=== PATIENT | male | born 1995 | race Caucasian/White ===

== ENCOUNTER 2017-09-27 15:51 | Emergency (ER) | payer OTHER ==
[2017-09-27] MEDS: ADACEL/BOOSTRIX VACCINE (DIPHTH/PERTUSS/ACELL/TETANUS)0.5ML SYR (90715) IM ×2 (16:34)
== END 2017-09-27 16:53 | disposition home or self-care (01) ==
LOC: M ED 15:51
DX: S61.011A Laceration without foreign body of right thumb without damage to nail, initial encounter (principal); W26.0XXA Contact with knife, initial encounter; Y92.009 Unspecified place in unspecified non-institutional (private) residence as the place of occurrence of the external cause; Y93.G1 Activity, food preparation and clean up; Y99.9 Unspecified external cause status
CPT/HCPCS: 90715

== ENCOUNTER 2018-07-10 11:03 | Emergency (ER) | payer OTHER ==
[~2018-07-10] VITALS: Ht 170.2 cm; Wt 72.7 kg
--- NOTE | 2018-07-10 11:58 | REP ---
Right knee series: Five views. History: Pain. Injury. Findings: Five views of the right knee demonstrate normal bones, joints, and soft tissues. A normal fabella is noted posterolaterally. Some clothing artifact. Impression: Negative right knee radiographs. Electronically Signed by Bret Garcia MD 07/10/2018 11:49 A
[2018-07-10] MEDS ORDERED: IBUP80TA PO (12:33)
[2018-07-10 12:36] VITALS: BP 136/64
== END 2018-07-10 12:44 | disposition home or self-care (01) ==
LOC: M ED 11:03
DX: S89.91XA Unspecified injury of right lower leg, initial encounter (principal); W19.XXXA Unspecified fall, initial encounter; Y92.89 Other specified places as the place of occurrence of the external cause; Y93.01 Activity, walking, marching and hiking; Y99.0 Civilian activity done for income or pay

== ENCOUNTER 2023-09-02 11:44 | Emergency (ER) | payer MEDICAID, OTHER ==
[~2023-09-02] VITALS: Ht 167.6 cm; Wt 74.2 kg
[~2023-09-02 11:44] MED LIST: IBUP80TA PO
[2023-09-02 13:52] LABS: Trichomonas vaginalis (AMP) NOT DETECTED (NEGATIVE)
[2023-09-02 14:14] LABS: GC DNA AMPLIFICATION NEGATIVE (NEGATIVE)
[2023-09-02] MEDS ORDERED: IBUP-1022 PO (15:40)
[2023-09-02] MEDS ORDERED: DOXY-323 PO (15:40)
[2023-09-02 15:46] VITALS: BP 126/64; TEMP 97.9; O2SAT 98
== END 2023-09-02 15:49 | disposition home or self-care (01) ==
LOC: M ED 11:44
DX: N45.2 Orchitis (principal); F17.210 Nicotine dependence, cigarettes, uncomplicated; Z79.1 Long term (current) use of non-steroidal anti-inflammatories (NSAID); Z79.2 Long term (current) use of antibiotics